=== PATIENT | female | born 1995 | race African-American/Black ===

== ENCOUNTER 2018-10-24 09:31 | Emergency (ER) | payer OTHER, SELFPAY ==
[~2018-10-24] VITALS: Ht 172.7 cm; Wt 79.0 kg
[2018-10-24 16:15] LABS: CLARITY URINE CLEAR (CLEAR); COLOR URINE YELLOW (YELLOW); KETONES URINE NEGATIVE (NEGATIVE); LEUKOCYTE ESTERASE URINE 1+ (NEGATIVE); NITRITE URINE NEGATIVE (NEGATIVE); OCCULT BLOOD URINE NEGATIVE (NEGATIVE); PROTEIN URINE NEGATIVE (NEGATIVE); SPECIFIC GRAVITY URINE 1.001 (1.005-1.030); UROBILINOGEN URINE 0.2 E.U./dL (0.2-1.0)
[2018-10-24 16:53] VITALS: BP 126/74
== END 2018-10-24 17:00 | disposition home or self-care (01) ==
LOC: ER 09:59
DX: N76.0 Acute vaginitis (principal); N39.0 Urinary tract infection, site not specified; F17.210 Nicotine dependence, cigarettes, uncomplicated
CPT/HCPCS: 81025; 87210; 99283